=== PATIENT | female | born 1990 | race Caucasian/White ===

== ENCOUNTER 2021-03-04 10:24 | Emergency (ER) | payer BC ==
--- NOTE | 2021-03-04 11:04 | EDM.PDOC ---
ED HPI GENERAL MEDICAL PROBLEM - General Chief Complaint: [facility] [employer] Problem Stated Complaint: VAGINAL BLEEDING PREG LENGTH UNK Time Seen by Provider: 03/04/21 10:45 Source of Information: Reports: Patient History Limitations: Reports: No Limitations - History of Present Illness INITIAL COMMENTS - FREE TEXT/NARRATIVE: Patient is 30-year-old female with a history of obesity presenting with a chief complaint of vaginal bleeding. Patient states she woke up this morning had blood in her underwear that was in amount consistent with her period. Patient states she is about 8 weeks as her last menstrual period was in early January. Patient states she has not had any imaging done yet but has had blood work done. Patient reports some mild to moderate cramping in her lower pelvic region. Otherwise, denies dizziness, chest pain, abdominal pain, back pain, urinary symptoms. Patient's first . Denies taking any medications at this time. Lower Pelvic Pain Score (Numeric/FACES): 4 - Related Data Allergies Allergy/AdvReac Type Severity Reaction Status Date / Time No Known Allergies Allergy Verified 03/04/21 10:40 Home Meds: Home Meds Pnv No.95/Ferrous Fum/Folic AC [ Tablet] 2 tab PO DAILY 03/04/21 [History] ED ROS GENERAL - Review of Systems Review Of Systems: See Below Free Text/Narrative/Comment: In addition to that documented in the HPI above, the additional ROS was obtained: Constitutional: Denies fevers or chills Eyes: Denies vision changes ENMT: Denies sore throat CV: Denies chest pain Resp: Denies SOB GI: Denies vomiting or diarrhea : Denies painful urination MSK: Denies recent trauma Skin: Denies new rashes Neuro: Denies new numbness or tingling or weakness Endocrine: Denies unexpected weight loss Heme: Denies bleeding disorders ED EXAM - Physical Exam Exam: See Below Text/Narrative:: I have reviewed the triage vital signs Const: Well nourished, well developed, appears stated age Eyes: Pupils Equal and reactive to light bilaterally, no conjunctival injection HENT: No signs of trauma or swelling, Neck supple without meningismus CV: Regular Rate Rhythm, Warm, well-perfused extremities RESP: Unlabored respiratory effort GI: soft, non-tender, non-distended, no masses MSK: No gross deformities appreciated Skin: Warm, dry. No rashes Neuro: Alert, paper inspector II-XII grossly intact. Sensation and motor function of extremities grossly intact. Psych: Appropriate mood and affect. Course - Vital Signs Last Recorded V/S: Last Vital Signs Temp 36.2 C 03/04/21 10:35 Pulse 68 03/04/21 10:35 Resp 16 03/04/21 10:35 BP 124/76 03/04/21 10:35 Pulse Ox 97 03/04/21 10:35 - Orders/Labs/Meds Orders: Active Orders 24 hr Category Date Time Status OB Transvaginal [US] Stat Exams 03/04/21 10:52 Taken PATIENT RETYPE [BBK] Routine Lab 03/04/21 11:54 Ordered Labs: Laboratory Tests 03/04/21 03/04/21 03/04/21 Range/Units 11:10 11:10 11:10 WBC 6.09 (3.98-10.04) K/mm3 RBC 4.87 (3.98-5.22) M/mm3 Hgb 14.6 (11.2-15.7) gm/dl Hct 42.6 (34.1-44.9) % MCV 87.5 (79.4-94.8) fl MCH 30.0 (25.6-32.2) pg MCHC 34.3 (32.2-35.5) g/dl RDW Std Deviation 43.1 (36.4-46.3) fL Plt Count 194 (182-369) K/mm3 MPV 11.0 (9.4-12.3) fl Neut % (Auto) 65.8 (34.0-71.1) % Lymph % (Auto) 23.3 (19.3-51.7) % Taney % (Auto) 10.5 (4.7-12.5) % Eos % (Auto) 0.2 L (0.7-5.8) Baso % (Auto) 0.2 (0.1-1.2) % Neut # (Auto) 4.01 (1.56-6.13) K/mm3 Lymph # (Auto) 1.42 (1.18-3.74) K/mm3 Taney # (Auto) 0.64 H (0.24-0.36) K/mm3 Eos # (Auto) 0.01 L (0.04-0.36) K/mm3 Baso # (Auto) 0.01 (0.01-0.08) K/mm3 Sodium 137 (136-145) mEq/L Potassium 3.5 (3.5-5.1) mEq/L Chloride 104 (98-107) mEq/L Carbon Dioxide 25 (21-32) mEq/L Anion Gap 11.5 (5-15) BUN 14 (7-18) mg/dL Creatinine 0.8 (0.55-1.02) mg/dL Est Cr Clr Drug Dosing 100.90 mL/min Estimated GFR (MDRD) > 60 (>60) mL/min BUN/Creatinine Ratio 17.5 (14-18) Glucose 85 (70-99) mg/dL Calcium 8.6 (8.5-10.1) mg/dL Total Bilirubin 0.5 (0.2-1.0) mg/dL AST 20 (15-37) U/L ALT 36 (14-59) U/L Alkaline Phosphatase 41 L (46-116) U/L Total Protein 6.9 (6.4-8.2) g/dl Albumin 3.7 (3.4-5.0) g/dl Globulin 3.2 gm/dL Albumin/Globulin Ratio 1.2 (1-2) HCG, Quant 217.0 mIU/mL Urine Color (Yellow) Urine Appearance (Clear) Urine pH (5.0-8.0) Ur Specific [place] (1.005-1.030) Urine Protein (Negative) Urine Glucose (UA) (Negative) Urine Ketones (Negative) Urine Occult Blood (Negative) Urine Nitrite (Negative) Urine Bilirubin (Negative) Urine Urobilinogen (0.2-1.0) Ur Leukocyte Esterase (Negative) Urine RBC (0-5) /hpf Urine WBC (0-5) /hpf Ur Squamous Epith Cells (0-5) /hpf Urine Bacteria (FEW) /hpf Urine Mucus (FEW) /hpf Blood Type A POSITIVE Gel Antibody Screen Negative 03/04/21 Range/Units 12:15 WBC (3.98-10.04) K/mm3 RBC (3.98-5.22) M/mm3 Hgb (11.2-15.7) gm/dl Hct (34.1-44.9) % MCV (79.4-94.8) fl MCH (25.6-32.2) pg MCHC (32.2-35.5) g/dl RDW Std Deviation (36.4-46.3) fL Plt Count (182-369) K/mm3 MPV (9.4-12.3) fl Neut % (Auto) (34.0-71.1) % Lymph % (Auto) (19.3-51.7) % Taney % (Auto) (4.7-12.5) % Eos % (Auto) (0.7-5.8) Baso % (Auto) (0.1-1.2) % Neut # (Auto) (1.56-6.13) K/mm3 Lymph # (Auto) (1.18-3.74) K/mm3 Taney # (Auto) (0.24-0.36) K/mm3 Eos # (Auto) (0.04-0.36) K/mm3 Baso # (Auto) (0.01-0.08) K/mm3 Sodium (136-145) mEq/L Potassium (3.5-5.1) mEq/L Chloride (98-107) mEq/L Carbon Dioxide (21-32) mEq/L Anion Gap (5-15) BUN (7-18) mg/dL Creatinine (0.55-1.02) mg/dL Est Cr Clr Drug Dosing mL/min Estimated GFR (MDRD) (>60) mL/min BUN/Creatinine Ratio (14-18) Glucose (70-99) mg/dL Calcium (8.5-10.1) mg/dL Total Bilirubin (0.2-1.0) mg/dL AST (15-37) U/L ALT (14-59) U/L Alkaline Phosphatase (46-116) U/L Total Protein (6.4-8.2) g/dl Albumin (3.4-5.0) g/dl Globulin gm/dL Albumin/Globulin Ratio (1-2) HCG, Quant mIU/mL Urine Color Brown H (Yellow) Urine Appearance Slt cloudy H (Clear) Urine pH 5.5 (5.0-8.0) Ur Specific [place] > or = 1.030 (1.005-1.030) Urine Protein 2+ H (Negative) Urine Glucose (UA) Negative (Negative) Urine Ketones Negative (Negative) Urine Occult Blood 3+ H (Negative) Urine Nitrite Positive H (Negative) Urine Bilirubin 1+ H (Negative) Urine Urobilinogen 1.0 (0.2-1.0) Ur Leukocyte Esterase Negative (Negative) Urine RBC 75-100 H (0-5) /hpf Urine WBC 0-5 (0-5) /hpf Ur Squamous Epith Cells 0-5 (0-5) /hpf Urine Bacteria Moderate H (FEW) /hpf Urine Mucus Few (FEW) /hpf Blood Type Gel Antibody Screen Departure - Departure Time of Disposition: 14:09 Disposition: Home, Self-Care 01 Clinical Impression: Incomplete - Discharge Information Instructions: Miscarriage, [id number] Referrals: PCP,None [Primary Care Provider] - Forms: ED Department Discharge Additional Instructions: Please follow-up with [employer]IDE next week for repeat evaluation. I recommend pelvic rest for the next several days. Avoid any strenuous activity or sexual intercourse. Return to the emergency room should you feel lightheaded, dizzy or have any other emergent concerns. Sepsis Event Note (ED) - Evaluation Sepsis Screening Result: No Definite Risk - Focused Exam Vital Signs: Vital Signs Temp Pulse Resp BP Pulse Ox 03/04/21 10:35 36.2 C 68 16 124/76 97 - My Orders Last 24 Hours: My Active Orders 03/04/21 10:52 OB Transvaginal [US] Stat 03/04/21 11:54 PATIENT RETYPE [BBK] Routine - Assessment/Plan Last 24 Hours: My Active Orders 03/04/21 10:52 OB Transvaginal [US] Stat 03/04/21 11:54 PATIENT RETYPE [BBK] Routine Assessment:: Patient 30-year-old female presenting to the emergency room with pelvic cramping and vaginal bleeding. Patient hemodynamically stable while in the emergency room. Differential diagnosis considered for this patient included , ectopic , threatened/incomplete . Laboratory studies and ultrasound performed in the emergency room. hCG serum level of 217. No significant anemia noted. Ultrasound shows no evidence of IUP. This may represent versus early IUP. Patient instructed to follow-up with outpatient primary care/[employer] AIDE for further evaluation in the next several days. Return precautions given as usual. Patient agrees with plan of care.
--- NOTE | 2021-03-04 16:51 | US ---
First trimester obstetrical ultrasound: Multiple real-time images were obtained transvaginally. Comparison: No prior pelvic or obstetrical ultrasound is available. Uterus is anteverted. No myometrial abnormality is appreciated. Endometrial thickness measures 7 mm. No gestational sac is seen. Both ovaries are seen and appear without abnormality. No adnexal abnormality is appreciated. Small amount of free fluid is seen within the cul-de-sac which is likely physiologic. Measurements: Right ovary: 2.8 x 1.9 x 2.3 cm Left ovary: 2.8 x 1.3 x 2.5 cm Uterus: Length 7.9 cm, AP height 3.3 cm, transverse width 3.9 cm Impression: 1. No intrauterine gestational sac or adnexal abnormality is seen. 2. Small amount of fluid within the cul-de-sac which is most likely physiologic. 3. Normal endometrial thickness is seen. Note: Please correlate if patient is undergoing miscarriage, I cannot completely exclude a nonvisualized early . Diagnostic code #2 I agree with preliminary report from jonathon, finalized on 03/04/21, 2:42 PM CDT, code 1
== END 2021-03-04 14:39 | disposition home or self-care (01) ==
LOC: JD.ED 10:24
DX: O03.4 Incomplete spontaneous abortion without complication (principal)
CPT/HCPCS: 36415; 76817; 76817-26; 80053; 81001; 84702; 85025; 86850; 86900; 86901; 99284-25

== ENCOUNTER 2021-12-19 07:00 | Inpatient (IN) | payer BC ==
[~2021-12-19 07:00] MED LIST: Bupivacaine 0.25% 10 ML SDV ONE; Lidocaine 1% 10 ML MDV ONE
[2021-12-19] MEDS ORDERED: Ondansetron 4 MG/2 ML SDV IVPUSH PRN ×2 (07:15→22:12)
[2021-12-19] MEDS ORDERED: Nalbuphine HCl 10 MG/ 1ML Amp IVPUSH PRN (07:15)
[2021-12-19] MEDS ORDERED: Oxytocin/Lactated Ringers 10 UNIT/1,000 ML BAG IV SCH (07:15)
[2021-12-19] MEDS ORDERED: Bupivacaine/fentaNYL/NS 100 ML Bag EPIDUR PRN (07:28)
[2021-12-19] MEDS ORDERED: fentaNYL 100 MCG/2 ML SDV EPIDUR PRN (07:28)
[2021-12-19] MEDS ORDERED: ePHEDrine 50 MG/ML SDV IVPUSH PRN (07:28)
[2021-12-19] MEDS ORDERED: diphenhydrAMINE 50 MG/ML SDV IVPUSH PRN ×3 (07:28→23:56)
[2021-12-19] MEDS ORDERED: Sodium Chloride 0.9% 10 ML Syringe FLUSH PRN (07:30)
[2021-12-19] MEDS: Misoprostol 25 MCG (1/4 of 100 MCG) Tab VAG SCH (08:06)
[2021-12-19] MEDS ORDERED: Sodium Chloride 0.9% 10 ML Syringe FLUSH SCH (09:00)
[2021-12-19] MEDS ORDERED: Ampicillin 2 GM Vial ONE (12:07)
[2021-12-19] MEDS: Lactated Ringers 1,000 ML IV SCH ×3 (12:09→18:35)
[2021-12-19] MEDS ORDERED: Ampicillin 2 GM in Sodium Chloride 0.9% 100 ML IV ONE (12:30)
[2021-12-19] MEDS: Oxytocin/Lactated Ringers 10 UNIT/1,000 ML BAG IV SCH ×2 (12:43→18:12)
[2021-12-19] MEDS: Ampicillin 1 GM in Sodium Chloride 0.9% 50 ML IV SCH ×2 (16:13→19:36)
[2021-12-19] MEDS ORDERED: Citric Acid/Sodium Citrate Solution 30 ML Cup PO ONE (20:01)
[2021-12-19] MEDS ORDERED: Azithromycin 500 MG in Sodium Chloride 0.9% 250 ML IV ONE (21:01)
[2021-12-19] MEDS ORDERED: Sodium Bicarbonate 8.4% 50 MEQ/50 ML SDV ONE (21:07)
[2021-12-19] MEDS ORDERED: Lidocaine 2% with EPINEPHrine 1:200,000 20 ML SDV ONE (21:07)
[2021-12-19] MEDS: Metoclopramide 10 MG/2 ML SDV IVPUSH ONE (21:09)
[2021-12-19] MEDS ORDERED: ceFAZolin 2 GM Vial ONE ×2 (21:12→21:20)
[2021-12-19] MEDS ORDERED: Oxytocin 10 Units/1 ML SDV ONE (21:17)
[2021-12-19] MEDS ORDERED: Lactated Ringers 1,000 ML ONE ×2 (21:19)
[2021-12-19] MEDS ORDERED: Morphine PF 10 MG/10 ML SDV ONE (21:31)
[2021-12-19] MEDS ORDERED: Ketorolac 30 MG/ML SDV ONE (21:45)
[2021-12-19] MEDS ORDERED: Ondansetron 4 MG/2 ML SDV ONE (21:46)
[2021-12-19] MEDS ORDERED: Phenylephrine HCl In 0.9% NaCl 1 MG/10 ML Vial ONE (21:50)
[2021-12-19] MEDS ORDERED: Meperidine 50 MG/ML Vial IVPUSH PRN (22:12)
[2021-12-19] MEDS ORDERED: fentaNYL 100 MCG/2 ML SDV IVPUSH PRN (22:12)
[2021-12-19] MEDS ORDERED: Naloxone 0.4 MG/ML SDV IVPUSH PRN (23:56)
[2021-12-19] MEDS ORDERED: Dextrose 5%-Lactated Ringers 1,000 ML IV SCH (23:56)
[2021-12-19] MEDS ORDERED: Acetaminophen/oxyCODONE 325-5 MG Tab PO PRN ×2 (23:56)
[2021-12-20] MEDS: Metoclopramide 10 MG/2 ML SDV IVPUSH ONE ×2 (00:59)
[2021-12-20] MEDS: Misoprostol 25 MCG (1/4 of 100 MCG) Tab VAG SCH (01:05)
[2021-12-20] MEDS: Ketorolac 30 MG/ML SDV IVPUSH SCH ×3 (04:02→16:15)
[2021-12-20] MEDS: Sertraline 50 MG Tab PO SCH (09:39)
[2021-12-20] MEDS: Ibuprofen 600 MG Tab PO PRN (22:28)
[2021-12-21] MEDS: Ibuprofen 600 MG Tab PO PRN (09:58)
[2021-12-21] MEDS: Sertraline 50 MG Tab PO SCH (09:59)
== END 2021-12-21 14:50 | disposition home or self-care (01) | DRG 540 ==
LOC: JD.OB 07:00 → OBSVTOIN 21:29 → JD.OB 21:30
PROVIDERS: ADMIT Obstetrics & Gynecology; ATTEND Obstetrics & Gynecology
PROC: 10D00Z1 Extraction of Products of Conception, Low, Open Approach (ICD-10-PCS; principal; 2021-12-19)
PROC: 10907ZC Drainage of Amniotic Fluid, Therapeutic from Products of Conception, Via Natural or Artificial Opening (ICD-10-PCS; 2021-12-19)
PROC: 3E0R3BZ Introduction of Anesthetic Agent into Spinal Canal, Percutaneous Approach (ICD-10-PCS; 2021-12-19)
PROC: 00HU33Z Insertion of Infusion Device into Spinal Canal, Percutaneous Approach (ICD-10-PCS; 2021-12-19)
PROC: 10H07YZ Insertion of Other Device into Products of Conception, Via Natural or Artificial Opening (ICD-10-PCS; 2021-12-19)
PROC: 8E0ZXY6 Isolation (ICD-10-PCS; 2021-12-19)
DX: O48.0 Post-term pregnancy (principal); Z3A.41 41 weeks gestation of pregnancy; Z37.0 Single live birth; O98.52 Other viral diseases complicating childbirth; U07.1 COVID-19; O99.824 Streptococcus B carrier state complicating childbirth; O76 Abnormality in fetal heart rate and rhythm complicating labor and delivery; B00.9 Herpesviral infection, unspecified; O99.52 Diseases of the respiratory system complicating childbirth; J45.909 Unspecified asthma, uncomplicated; O99.344 Other mental disorders complicating childbirth; F32.A Depression, unspecified; O99.214 Obesity complicating childbirth; E66.9 Obesity, unspecified
CPT/HCPCS: 01967; 01968; 36415; 51702; 59025; 85027; 86592; 86850; 86900; 86901; 99140; A9270-GY; C1726; J0290; J0690; J1200; J1885; J2274; J2405; J2590; J2765; J3010; J3490; J7120; J7121; U0002